=== PATIENT | male | born 1990 | race Caucasian/White ===

== ENCOUNTER 2022-04-24 16:23 | Emergency (ER) | payer OTHER, SELFPAY ==
--- NOTE | ~2022-04-24 | XR_ITS ---
EXAMINATION: XR chest 2V Exam Date/Time: 04/24/2022 17:00 CDT HISTORY: covid exposure left upper back pain Comparison: None available. RESULT: Lines, tubes, and devices: None. Lungs and pleura: Clear. Cardiomediastinal silhouette: Normal. Other: No acute osseous or upper abdominal finding. IMPRESSION: No acute cardiopulmonary process. Reviewed, dictated and finalized at location K.
[2022-04-24 16:38] VITALS: BP 145/68; PULSE 66; RESP 18; TEMP 36.4; O2SAT 99
--- NOTE | 2022-04-24 16:46 | ED.URI ---
HPI - URI/Sore Throat General Chief Complaint: Upper Respiratory Infection Stated Complaint: Headache,Nausea,Lower Back Pain,Lt Shoulder Pain Time Seen by Provider: 04/24/22 16:46 History of Present Illness HPI Narrative: Jose A Dawn is a 31 yo male with no PMH who comes to [facility] with symptoms of headache sore throat and upper back pain has been exposed to COVID or other virus with a group of coworkers who works in a senior living on a quarantine toribio Related Data Allergies Allergy/AdvReac Type Severity Reaction Status Date / Time No Known Allergies Allergy Verified 04/24/22 16:59 Review of Systems Review of Systems: CONSTITUTIONAL: Denies fever, chills, sweats. Headache EYES: Denies visual changes, redness, discharge. ENT: Denies rhinorrhea, congestion, has sore throat, otalgia. Muscle aches CARDIOVASCULAR: Denies chest pain, palpitations, edema. RESPIRATORY: Denies dyspnea, wheezing, mild cough GASTROINTESTINAL: Denies abdominal pain, has nausea, vomiting, diarrhea. GENITOURINARY: Denies dysuria, hematuria, abnormal discharge SKIN: Denies rash or itching. NEUROLOGIC: Denies numbness, or focal weakness. PSYCHIATRIC: Denies anxiety or depression. Upper left back pain PMFSH Social History Social History (Updated 04/24/22 @ 17:14 by Celestina Esparza CNP) Smoking status: Never smoker Alcohol intake: current Comments At time of signature, I agree with nursing past medical, surgical, social and family history. There is no relevant family history pertinent to the presenting complaint. Exam Narrative: GENERAL: This is a well-nourished, well-developed patient, in mild distress. HEAD: normocephalic, atraumatic. EYES: Sclera clear/white. Vision is grossly intact. EARS: External ears normal, auditory canals clear and without drainage, TMs normal without perforation. Hearing grossly intact. NOSE: External nose normal without nasal discharge, nares without redness, no rhinorrhea. THROAT: Mucous membranes moist, posterior pharynx erythema NECK: Neck supple, non-tender CARDIOVASCULAR: Regular rate and rhythm without murmurs, gallops, or rubs. RESPIRATORY: Clear to auscultation. Breath sounds equal bilaterally. No wheezes, rales, or rhonchi. GASTROINTESTINAL: Not done SKIN: warm, intact with no suspicious lesions or rash, good texture and turgor. NEURO: awake, alert, and oriented to person, place and time. There were no obvious focal neurologic abnormalities. Steady gait EXTREMITIES: Normal range of motion. BACK:tender without deformity, not fully reproducible, hurts to lift arm, tightness with deep breath Course Course Emergency Course: Patient comes to [facility] with complaints of headache body aches sore throat nausea for 2 days he works in senior living quarantine unit COVID test-negative Flu test-negative Chest x-ray-no acute cardiopulmonary process normal cardiomediastinal silhouette Started on baclofen for upper back muscle pain Work excuse given awaiting results of COVID PCR Level of Care: Express Care Visit Vital Signs Vital signs: Vital Signs Temperature 97.5 F L 04/24/22 16:38 Pulse Rate 66 04/24/22 16:38 Respiratory Rate 18 04/24/22 16:38 Blood Pressure 145/68 H 04/24/22 16:38 Pulse Oximetry 99 04/24/22 16:38 Oxygen Delivery Room Air 04/24/22 16:38 Temperature 97.5 F L 04/24/22 16:38 Pulse Rate 66 04/24/22 16:38 Respiratory Rate 18 04/24/22 16:38 Blood Pressure 145/68 H 04/24/22 16:38 Pulse Oximetry 99 04/24/22 16:38 Oxygen Delivery Room Air 04/24/22 16:38 MDM - URI/Sore Throat Differential Diagnosis Differential diagnosis: Likely upper respiratory infection, sinusitis, viral infection, influenza and other (COVID versus muscle strain versus costochondritis) Lab Data Labs: Lab Results 04/24/22 Range/Units 17:55 POC SARS CoV-2 Ag Negative (Negative) Influenza A Screen Negative Reference
[2022-04-24 18:52] LABS: SARS-CoV-2 RNA PCR Negative
== END 2022-04-24 17:30 | disposition home or self-care (01) ==
PROVIDERS: Emergency Provider Nurse Practitioner
DX: Z20.822 Contact with and (suspected) exposure to COVID-19 (principal); M54.6 Pain in thoracic spine
CPT/HCPCS: 71046; 87426; 87804; 99203; C9803; G0463; U0003; U0005

== ENCOUNTER 2022-09-16 15:33 | Emergency (ER) | payer OTHER, SELFPAY ==
--- NOTE | 2022-09-16 15:38 | ED.NAVMDI ---
HPI - Nausea/Vomiting/Diarrhea General Chief complaint: Nausea/Vomiting/Diarrhea Stated complaint: DIARRHEA Time Seen by Provider: 09/16/22 15:38 Source: patient and RN notes reviewed History of Present Illness HPI Narrative: Patient is a 32-year-old female who presents to the Urgent Care with complaints of diarrhea that started this morning. Patient states that does seem to have calmed down since he has taken Pepto-Bismol approximately 1 hour ago. Patient believes it may have been from the [place] food that he ate last night. Patient states he has had approximately 4 loose stools. Denies any blood in the stool. Denies any abdominal pain or fever. Denies any nausea or vomiting. Patient states his main concern is missing work. No other acute complaints. No acute distress noted. Patient aware of the plan of care. Some parts of this dictation were generated by voice recognition software and may contain typographical and/or grammatical inaccuracies. Related Data Home Medications Medication Instructions Recorded Confirmed No Home Medications 09/16/22 09/16/22 Allergies Allergy/AdvReac Type Severity Reaction Status Date / Time No Known Allergies Allergy Verified 09/16/22 15:49 Review of Systems Review of Systems: CONSTITUTIONAL: Denies fever, chills, or sweats. EYES: Denies visual changes, redness, or discharge. ENT: Denies rhinorrhea, congestion, sore throat, or otalgia. CARDIOVASCULAR: Denies chest pain, palpitations, or edema. RESPIRATORY: Denies cough or dyspnea. GASTROINTESTINAL: Reports of loose stools without abdominal pain, nausea or vomiting GENITOURINARY: Denies dysuria or hematuria. SKIN: Denies rash or itching. MUSCULOSKELETAL: Denies back pain, joint pain, or myalgia. NEUROLOGIC: Denies headache, numbness, or weakness. All other systems reviewed are negative, except as documented in HPI. PMFSH Social History Social History (Updated 04/24/22 @ 17:14 by Celestina Esparza, [employer]) Smoking status: Never smoker Alcohol intake: current Comments At the time of my signature, I reviewed and agree with the nursing past medical, surgical, social, and family history. There is no relevant family history pertinent to the patient complaint. Exam Narrative: GENERAL: This is a well-nourished, well-developed patient, in no apparent distress. HEAD: normocephalic, atraumatic. EYES: PERRL. Sclera clear/white. Vision is grossly intact. EARS: External ears normal NOSE: External nose normal with no obvious nasal discharge, nares without redness, no rhinorrhea. THROAT: Mucous membranes moist NECK: Neck supple GASTROINTESTINAL: Abdomen soft, non-tender, nondistended. Bowel sounds are hypoactive. SKIN: warm, intact with no suspicious lesions or rash, good texture and turgor. NEURO: awake, alert, and oriented to person, place and time. There were no obvious focal neurologic abnormalities. EXTREMITIES: No clubbing, cyanosis, or edema. Course Course Level of Care: Express Care Visit Vital Signs Vital signs: Vital Signs Pulse Rate 74 09/16/22 15:46 Respiratory Rate 16 09/16/22 15:46 Blood Pressure 131/67 09/16/22 15:46 Pulse Oximetry 99 09/16/22 15:46 Pulse Rate 74 09/16/22 15:46 Respiratory Rate 16 09/16/22 15:46 Blood Pressure 131/67 09/16/22 15:46 Pulse Oximetry 99 09/16/22 15:46 Reviewed MDM - Nausea/Vomiting/Diarrhea MDM Narrative Medical decision making narrative: Advised patient to eat a bland diet avoiding any fatty, fried or greasy foods for the next 48 hours. Increase water intake. Continue the Pepto-Bismol [id number] as needed for symptom relief or may use Imodium. If he develops any increase in symptoms associated with blood in the stools, nausea, vomiting, fever or intense abdominal pains-go to the emergency room. Follow-up with your PCP within 2-5 days or for worsening symptoms or failure to improve. Differential Diagnosis Differential diagnosis: Likely tr
[2022-09-16 15:46] VITALS: BP 131/67; PULSE 74; RESP 16; O2SAT 99
== END 2022-09-16 16:15 | disposition home or self-care (01) ==
PROVIDERS: Emergency Provider Nurse Practitioner Family
DX: K52.9 Noninfective gastroenteritis and colitis, unspecified (principal)
CPT/HCPCS: 99211; G0463

== ENCOUNTER 2022-11-26 10:08 | Emergency (ER) | payer OTHER, SELFPAY ==
[2022-11-26 10:24] VITALS: BP 120/81; PULSE 72; RESP 16; TEMP 36.3; O2SAT 99
--- NOTE | 2022-11-26 10:26 | ED.URI ---
HPI - URI/Sore Throat General Chief Complaint: Upper Respiratory Infection Stated Complaint: HEADACHE/COUGH/RUNNY NOSE/SORE THROAT Time Seen by Provider: 11/26/22 10:27 Source: patient, RN notes reviewed and old records reviewed Mode of arrival: ambulatory Limitations: no limitations History of Present Illness HPI Narrative: 32-year-old male presents to the [facility] with complaints of cough, headache, runny nose and sore throat for 4 days reports a fever of 100.3 yesterday. No treatment prior to arrival. Reports it feels similar to when he had COVID. Onset (ago): day(s) (4) Related Data Home Medications Medication Instructions Recorded Confirmed No Home Medications 09/16/22 11/26/22 Allergies Allergy/AdvReac Type Severity Reaction Status Date / Time No Known Allergies Allergy Verified 11/26/22 10:17 Review of Systems Review of Systems: All systems reviewed & are unremarkable except as noted in HPI and below Constitutional: Constitutional: Reports no additional constitutional complaints Eyes: Eyes: Reports no additional eye complaints ENT: Reports as per HPI Cardiovascular: Cardiovascular: Reports no additional cardiovascular complaints, Denies chest pain and Denies dyspnea Respiratory: Respiratory: Reports no additional respiratory complaints, Denies chest congestion, Denies cough and Denies dyspnea Gastrointestinal: Gastrointestinal: Reports no additional gastrointestinal complaints, Denies abdominal pain, Denies nausea and Denies vomiting Musculoskeletal: Musculoskeletal: Reports no additional musculoskeletal complaints Integumentary/Breasts: Skin/Breast: Reports system reviewed and no additional complaints, except as docu Neurologic: Reports system reviewed and no additional complaints, except as documented Psychiatric: Psychiatric: Reports no additional psychiatric complaints Allergic/Immunologic: Allergic/Immunologic: Reports no additional allergic/immunologic complaints PMFSH Social History Social History Smoking status: Never smoker Alcohol intake: current Comments At the time of my signature, I reviewed and agree with the nursing past medical, surgical, social, and family history. There is no relevant family history pertinent to the patient complaint. Exam Const: General: cooperative, healthy appearing, comfortable, no acute distress, well developed, alert and well nourished Nutritional Appearance: well nourished Orientation/consciousness: patient oriented x3 Limitations: no limitations HENMT: Head: normal to inspection Ears: hearing grossly normal bilaterally and external ears normal Face/Nose/Sinus: Normal external nose present, Normal nares present, Normal nasal mucous membranes and turbinates present, Nasal discharge present clear bilateral, normal facial exam, sinuses nontender and face symmetric Face and sinus: normal facial exam Mouth: Yes Normal oral and palatal mucosa present, Yes lip normal and Yes moist mucous membranes Throat: posterior oropharynx normal and uvula midline Eyes: General: appearance normal, both eyes and all related structures Alignment and Position: alignment normal Periorbital: periorbital findings normal Conjunctivae: conjunctivae normal Pupils: Equal, round and reactive pupils present EOM: EOMs intact bilaterally Neck: Neck: normal visual inspection, full ROM, no lymphadenopathy and no meningeal signs Chest: Chest palpation & inspection: normal inspection of the chest Resp: Effort & Inspection: normal respiratory effort and able to speak in complete sentences Auscultation: clear to auscultation bilaterally, no crackles, no rales, no rhonchi and no wheezes Cardio: Rate: regular rate Rhythm: regular rhythm Back/Spine/Pelvis: Cervical Spine: cervical ROM normal Thoracic/Lumbar Spine: No thoracic spinal tenderness Skin: General skin exam: normal color and no rashes or lesions noted L
== END 2022-11-26 10:37 | disposition home or self-care (01) ==
PROVIDERS: Emergency Provider Nurse Practitioner
DX: J10.1 Influenza due to other identified influenza virus with other respiratory manifestations (principal); Z20.822 Contact with and (suspected) exposure to COVID-19
CPT/HCPCS: 87081; 87426; 87804; 87880; 99213; C9803; G0463

== ENCOUNTER 2023-01-11 11:30 | Emergency (ER) | payer OTHER, SELFPAY ==
--- NOTE | 2023-01-11 11:37 | ED.URI ---
HPI - URI/Sore Throat General Chief Complaint: Upper Respiratory Infection Stated Complaint: fatigue,cough,congestion,sore throat Time Seen by Provider: 01/11/23 12:21 Source: patient and RN notes reviewed Mode of arrival: ambulatory Limitations: no limitations History of Present Illness HPI Narrative: 32-year-old male presents concern for nasal congestion, runny nose, ear pain, cough. Reports symptoms started about 5 days ago. Reports he was diagnosed with flu in the middle of November and had a cough for almost a month and a half. Reports that cough had resolved a few days before the new illness began. He reports he has not had nasal congestion, chest pain, cough this entire time. He denies fever, aches, chills, sweats. He reports he has been taking counter cold medicine. Reports his girlfriend has had cold symptoms MD elicited complaint: cough and sore throat Related Data Allergies Allergy/AdvReac Type Severity Reaction Status Date / Time No Known Allergies Allergy Verified 01/11/23 12:10 Review of Systems Review of Systems: CONSTITUTIONAL: Denies malaise, chills, sweats, or fever. EYES: Denies visual changes, redness, or discharge. ENT: Reports rhinorrhea, congestion, otalgia. Denies sore throat. CARDIOVASCULAR: Denies chest pain, palpitations, or edema. RESPIRATORY: Reports cough. Denies dyspnea. GASTROINTESTINAL: Denies abdominal pain, nausea, vomiting, diarrhea SKIN: Denies rash or itching. MUSCULOSKELETAL: Denies myalgia. NEUROLOGIC: Denies headache. All systems reviewed & are unremarkable except as noted in HPI and below PMFSH Social History Social History Smoking status: Never smoker Alcohol intake: current Comments At time of signature, agree with nursing past medical, surgical, social and family history. There is no relevant family history pertinent to the presenting complaint Exam Narrative: GENERAL: Well-appearing, well-nourished, and in no acute distress. HEAD: Normocephalic EYES: PERRLA, conjunctivae clear ENT: Nares clear, turbinates edematous and erythematous, clear discharge. Mucous membranes moist. TM pearly contreras with sharp light reflex bilaterally; no tragal tenderness. Oropharynx not erythematous without lesions. Tonsils not enlarged and without exudate, no drooling, no hoarseness, no trismus, uvula midline. NECK: Supple. No lymphadenopathy CHEST: Clear to auscultation, breath sounds equal. No wheezing, rhonchi, rales, or stridor. No respiratory distress, speaks in full sentences. HEART: Regular rate and rhythm. No murmur heard. SKIN: Warm, dry, no rash. NEURO: Alert and oriented x3. PSYCH: Normal mood and affect Course Course Emergency Course: Patient is aware of diagnosis, understands and agrees to treatment plan. Anticipatory guidance given. Patient agrees to follow-up as directed and is aware of reasons to seek care at the emergency department. Portions of this record may have been created with voice recognition software Level of Care: Express Care Visit Vital Signs Vital signs: Reviewed. MDM - URI/Sore Throat MDM Narrative Medical decision making narrative: Differential diagnosis considered: Santiago virus, strep pharyngitis, allergic rhinitis, upper respiratory tract infection, sinusitis, rhinosinusitis, nasopharyngitis. viral pharyngitis, otitis media, otitis externa, pneumonia, bronchitis, viral cough syndrome, viral syndrome, and influenza. Exam findings show no acute concerns or changes; patient is non-toxic appearing and is in no distress. Patient is appropriate for outpatient treatment and follow-up. Lab Data Attestation: I reviewed the patient's lab results. Critical Care Time Critical Care Time Critical Care Time: No Discharge Plan Discharge Clinical Impression: Upper respiratory infection Patient Disposition: Home, Self-Care Condition: Stable Instructions: Upper Respiratory Infection (ED)
[2023-01-11 11:39] VITALS: BP 122/76; PULSE 60; RESP 16; TEMP 36.2; O2SAT 99
== END 2023-01-11 12:31 | disposition home or self-care (01) ==
PROVIDERS: Emergency Provider Nurse Practitioner
DX: J06.9 Acute upper respiratory infection, unspecified (principal)
CPT/HCPCS: 99213; G0463

== ENCOUNTER 2023-08-01 11:00 | Outpatient (RCR) | payer OTHER, SELFPAY ==
--- NOTE | 2023-06-07 14:33 | PTOPEVAL1 ---
Assessment and note entered by Yudy Bustillo, PT Evaluation Information Assessment Status Evaluation Diagnosis right knee patellar tendonitis Therapy Condition pain in right knee Onset ~2 years ago Subjective Information Was playing volleyball, jumped and landed normal but a pain just shot up leg and hasn't been able to move like he used to. Pain would go away after a week then would return. Normal vertical leap was 28 inches. Could do a 6 min 30 second mile and now is closer to 9 minutes Used to go 5 days weekly, volleyball 3-4 days out of the week and lifts 5 days weekly. Mary is only lifting 2 days weekly and is not playing volleyall at all. Couple days before saw doctor, was in a tournament and after first game became painful. Next day had to lift leg into car. Would use ibuprofen but this didn't seem to help. would diminish pain but not resolve pain. With rest pain would resolve but with activity would return. Pt tried heat and this cauesd pain to worsen, ice felt better. Icy/Hot didn't seem to help. Reported Pain Level Pain Score 0: Self Report Assessment PT Clinical Summary Pt presents with complaints of right knee pain related to patellar tendonitis. He demo's multiple areas of decreased muscular flexibility, decreased strength in hip musculature R>L, poor kinematics with high level activities such as lunges and vertical leap, and poor ankle/knee alignment. Pt will greatly benefit from physical therapy to address deficits, and educate patient on appropriate kinematics to prevent recurrence in the future. Plan of Care Interventions Electrical Stimulation,Hot Pack/Cold Pack,Manual Therapy,Neuro Re-education,Patient/Caregiver Educati,Therapeutic Activities,Therapeutic Exercise,Self-Care/Home Management,Ultrasound PT Services Indicated Yes Treatment Frequency and 1-2x weekly x 4-6 weeks Duration These treatments will address the objective and functional deficits as defined above. The patient will be advanced safely and appropriately in order for the patient to progress towards his/her prior
--- NOTE | 2023-06-07 14:34 | OPREHPOC ---
Outpatient Therapy Plan of Care This is a Multidisciplinary Plan of Care that may contain components documented by all disciplines (PT, OT, and ST.) PT Goal 1 Goal Pt will be independent in HEP Pt will verbalize understanding of diagnosis and prognosis Target Visit 8 PT Problem 2 PT Problem #2 Pain PT Goal 1 Goal Pt will report greatest pain level at 3/10 or less to improve high level activities Target Visit 8 PT Goal 2 Goal Pt will report resolution of pain to return to PLOF Target Visit 16 PT Problem 3 PT Problem #3 Impaired Strength PT Goal 1 Goal Pt will demo equal strength RLE and LLE in all tested planes Target Visit 8 PT Goal 2 Goal Pt will demo strength of 4+/5 in all tested planes Target Visit 16 PT Problem 4 PT Problem #4 Impaired Coordination PT Goal 1 Goal Pt will demo appropriate squat and vertical leap alignment without cueing Target Visit 16 PT Goal 2 Goal Pt will score 80/80 on LEFS functional outcome measure.
--- NOTE | 2023-06-29 14:03 | PCPTNOTE ---
Patient called & cancelled scheduled appointment this date due to being too sore from last session
--- NOTE | 2023-07-06 16:41 | PTOPPROG ---
Assessment and note entered by Yudy Bustillo, PT Assessment Status Progress Diagnosis right knee patellar tendonitis, pain in right knee Onset ~2 years ago Subjective Information Pt states he is doing really well, doing even better than last time. Self-percieved improvement: 90% Hasn't returned to sports or leg workouts yet and usually in the winter is when it bothers him. Assessment PT Clinical Summary Pt has made significant progress with therapy functionally and related to discomfort levels. He has yet to return to full activity however. Today initial return to play activities were performed with instructions related to advancement. Pt will benefit from continued therapy to continued improvement and meet remainder of his goals. Plan of Care Interventions Electrical Stimulation,Hot Pack/Cold Pack,Manual Therapy,Neuro Re-education,Patient/Caregiver Educati,Therapeutic Activities,Therapeutic Exercise,Self-Care/Home Management,Ultrasound PT Services Indicated Yes Treatment Frequency and 1x weekly x 4 weeks Duration These treatments will address the objective and functional deficits as defined above. The patient will be advanced safely and appropriately in order for the patient to progress towards his/her prior level of function. Additional exercises will be introduced and as well as a comprehensive home exercise program upon discharge, if needed, ?to ensure carryover of functional gains achieved in the clinic. This treatment plan has been reviewed and agreement upon by the patient.
--- NOTE | 2023-08-05 09:42 | PCPTNOTE ---
Clinic called patient and cancelled appointment of 07/28/23 due to staffing shortages
--- NOTE | 2023-08-09 09:28 | PCPTNOTE ---
Patient called & cancelled scheduled appointment this date due to illness
--- NOTE | 2023-08-25 11:43 | PTOPDC ---
Assessment and note entered by Yudy Bustillo, PT Assessment Status Discharge - Pt Not Present Diagnosis right knee patellar tendonitis Onset ~2 years ago Assessment PT Clinical Summary At last treatment session pt was doing well regarding his right knee reporting he had not had pain in a long time. Left knee was bothersome last session and pt was advised in general home exercises and plan. It has been 3 weeks since patient's last session. We have attempted to contact patient multiple times to reschedule his reevaluation/discharge but have been unsuccessful in contacting him. Thus we are discharging him from therapy services.
== END 2023-08-26 11:12 | disposition home or self-care (01) ==
LOC: ANHHIPT 11:00
PROVIDERS: Visit Provider Family Medicine
DX: M76.50 Patellar tendinitis, unspecified knee (principal)
CPT/HCPCS: 97110; 97112; 97161; 97530; 97750

== ENCOUNTER 2024-03-14 14:12 | Emergency (ER) | payer OTHER, SELFPAY ==
--- NOTE | 2024-03-14 14:18 | ED.URI ---
HPI - URI/Sore Throat General Stated Complaint: + COVID Time Seen by Provider: 03/14/24 14:19 Source: patient Mode of arrival: ambulatory Limitations: no limitations History of Present Illness HPI Narrative: Jose A is a 33-year-old male patient presenting to the clinic today with complaints of reports he has had back pain, cough, nasal congestion, sore throat, and generalized body aches x 1 day. He did not home COVID test and it was positive. He needs a work note verifying positive COVID testing. Related Data Home Medications Medication Instructions Recorded Confirmed No Home Medications 04/11/23 03/14/24 Allergies Allergy/AdvReac Type Severity Reaction Status Date / Time No Known Allergies Allergy Unverified 03/14/24 14:19 Review of Systems Review of Systems: Pertinent positives per HPI. Patient denies any fever, chills, rash, headache, visual changes, dizziness, shortness of breath, chest pain, palpitations, nausea, vomiting, diarrhea, constipation, abdominal pain, or any urinary issues. [facility] Past Medical History Medical History Annual physical exam Encounter for screening for malignant neoplasm of prostate Encounter to establish care with new doctor Patellar tendonitis Screening cholesterol level Surgical History Surgical History No history of previous surgery Family History Family History Grandparent Diabetes mellitus Mother Cancer Social History Social History Smoking status: Never smoker Alcohol intake: current Substance use: never Do You Feel Safe in your Home?: Yes Lack of Transportation: No Lack of Food: Never True Current Housing: I Have Housing Concerned About Future Housing: No Difficulty Paying Gas/Electric Bills: No Difficulty Paying for Meds: No Currently Unemployed: No Education: High School Diploma/GED Difficulty w/ Childcare or Family Care: No Living arrangements: alone Occupation/Education: occupation 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 There is no relevant family history pertinent to the patient complaint. Exam Narrative: General: Well-developed, well nourished, in no apparent distress Head: Normocephalic, atraumatic Eyes: Pupils equally round and reactive to light bilaterally, EOM intact, sclera and conjunctive clear, no discharge, lids normal Ears: TMs intact and congested, ear canals clear, no drainage, grossly hearing normal. Nose: Nares patent, clear nasal discharge, no inflammation, no sinus tenderness. Mouth: Oropharynx without lesions or masses, good dentition, MMM. Neck: Supple, trachea midline, no enlargement of anterior or posterior cervical nodes, no thyroid masses or goiter palpable. Cardio: Regular rate and rhythm, s1 and s2 normal, no murmur appreciated. Resp: Clear to auscultation bilaterally anteriorly and posteriorly, no rhonchi, rales, wheezing or rubs Course Course Emergency Course: Portions of this record may have been created with voice recognition software. Level of Care: Express Care Visit Vital Signs Vital signs: Vital signs reviewed MDM - URI/Sore Throat MDM Narrative Medical decision making narrative: At the time of visit patient is resting comfortably on the exam table. Patient appears to be nontoxic. Labs: COVID-testing was positive in the clinic today Plan: I suspect patient has COVID. Work note was given. Supportive measures were discussed with the patient and they voiced understanding discharge instructions and agrees to treatment plan. Return precautions reviewed
[2024-03-14 14:25] VITALS: BP 130/81; PULSE 70; RESP 16; TEMP 36.9; O2SAT 100
== END 2024-03-14 14:27 | disposition home or self-care (01) ==
PROVIDERS: Emergency Provider Nurse Practitioner Family; PCP Nurse Practitioner Family
DX: U07.1 COVID-19 (principal)
CPT/HCPCS: 87426; 99213; G0463

== ENCOUNTER 2024-04-18 13:25 | Emergency (ER) | payer OTHER, SELFPAY ==
--- NOTE | 2024-04-18 13:26 | ED.SKABFB ---
HPI - Skin/Abscess/Foreign Bdy General Chief complaint: Skin/Abscess/Foreign Body Stated complaint: RED SPOTS ON R LEG/GROIN & R LEG PAIN Time Seen by Provider: 04/18/24 13:25 Source: patient Mode of arrival: ambulatory Limitations: no limitations History of Present Illness HPI narrative: Jose A is a 33-year-old male patient presenting to the clinic today with complaints of to sores to the right lower leg with pain radiated up into his groin. He reports he noticed to pustular sores to the right leg on Tuesday and attempted to pop them. Someone popped 1 of the source yesterday and drained some bloody discharge. Areas are becoming more red, painful, and he is having some pain going up his right inner thigh and into the right groin. He denies any fevers, chills, or body aches but notes he has had some fatigue but attributes that to not sleeping well. Related Data Allergies Allergy/AdvReac Type Severity Reaction Status Date / Time No Known Allergies Allergy Verified 04/18/24 13:38 Review of Systems Review of Systems: Pertinent positives per HPI. Patient denies any fever, chills, rash, headache, visual changes, dizziness, cough, runny nose, sore throat, shortness of breath, chest pain, palpitations, nausea, vomiting, diarrhea, constipation, abdominal pain, or any urinary issues. [facility] Past Medical History Medical History Annual physical exam Encounter for screening for malignant neoplasm of prostate Encounter to establish care with new doctor Patellar tendonitis Screening cholesterol level Surgical History Surgical History No history of previous surgery Family History Family History Grandparent Diabetes mellitus Mother Cancer Social History Social History Smoking status: Never smoker Alcohol intake: current Substance use: never Do You Feel Safe in your Home?: Yes Lack of Transportation: No Lack of Food: Never True Current Housing: I Have Housing Concerned About Future Housing: No Difficulty Paying Gas/Electric Bills: No Difficulty Paying for Meds: No Currently Unemployed: No Education: High School Diploma/GED Difficulty w/ Childcare or Family Care: No Living arrangements: alone Occupation/Education: occupation 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 There is no relevant family history pertinent to the patient complaint. Exam Narrative: General: Well-developed, well nourished, in no apparent distress Head: Normocephalic, atraumatic. Cardio: Regular rate and rhythm, s1 and s2 normal, no murmur appreciated. Resp: Clear to auscultation bilaterally, no rhonchi, rales, wheezing or rubs. Integumentary: [place], warm, and dry, two sores to the right leg 1 distal and 1 proximal that are red and swollen and tender to palpation with mild induration with scabbed centers-yellow crusting. No drainage active. No lymphatic streaking, tenderness to palpation over the right medial thigh and over the right groin. No erythema over the medial thigh or the groin Course Course Emergency Course: Portions of this record may have been created with voice recognition software. Level of Care: Express Care Visit Vital Signs Vital signs: Vital Signs Temperature 36.3 C L 04/18/24 13:30 Pulse Rate 79 04/18/24 13:30 Respiratory Rate 16 04/18/24 13:30 Blood Pressure 131/77 04/18/24 13:30 Pulse Oximetry 98 04/18/24 13:30 Temperature 36.3 C L 04/18/24 13:30 Pulse Rate 79 04/18/24 13:30 Respiratory Rate 16 04/18/24 13:30 Blood Pressure 131/77 04/18/24 1
[2024-04-18 13:30] VITALS: BP 131/77; PULSE 79; RESP 16; TEMP 36.3; O2SAT 98
== END 2024-04-18 13:40 | disposition home or self-care (01) ==
PROVIDERS: Emergency Provider Nurse Practitioner Family; PCP Nurse Practitioner Family
DX: L08.9 Local infection of the skin and subcutaneous tissue, unspecified (principal); B96.89 Other specified bacterial agents as the cause of diseases classified elsewhere
CPT/HCPCS: 99213; G0463

== ENCOUNTER 2024-10-03 12:26 | Emergency (ER) | payer OTHER, SELFPAY ==
[2024-10-03 12:49] VITALS: BP 109/70; PULSE 82; RESP 16; TEMP 36.5; O2SAT 98
[2024-10-03 13:04] LABS: EDCOVIDSCREEN Negative (Negative); EDINFLUASCREEN Negative (Negative); EDINFLUBSCREEN Negative (Negative)
--- NOTE | 2024-10-03 13:10 | ED.NAVMDI ---
HPI - Nausea/Vomiting/Diarrhea General Chief complaint: Nausea/Vomiting/Diarrhea Stated complaint: VOMITING/DIARRHEA/NAUSEA/CHILLS/SWEATS Time Seen by Provider: 10/03/24 13:10 Source: patient Mode of arrival: ambulatory Limitations: no limitations History of Present Illness HPI Narrative: 34-year-old male presents with complaint of fatigue, nausea, vomiting, diarrhea, upset stomach for 2 days. States symptoms were mild yesterday, worse today. Complains of headache. Able to keep down some water. All systems reviewed and negative except as noted above. Related Data Allergies Allergy/AdvReac Type Severity Reaction Status Date / Time No Known Allergies Allergy Verified 10/03/24 12:54 Review of Systems Review of Systems: CONSTITUTIONAL: Denies fever, chills, or sweats. EYES: Denies visual changes, redness, or discharge. ENT: Denies rhinorrhea, congestion, sore throat, or otalgia. CARDIOVASCULAR: Denies chest pain, palpitations, or edema. RESPIRATORY: Denies cough or dyspnea. GASTROINTESTINAL: Denies abdominal pain. Reports nausea, vomiting, or diarrhea. GENITOURINARY: Denies dysuria or hematuria. SKIN: Denies rash or itching. MUSCULOSKELETAL: Denies back pain, joint pain, or myalgia. NEUROLOGIC: Denies headache, numbness, or weakness. PSYCHIATRIC: Denies anxiety or depression. All other systems reviewed are negative, except as documented in HPI. [facility] Past Medical History Medical History Annual physical exam Encounter for screening for malignant neoplasm of prostate Encounter to establish care with new doctor Patellar tendonitis Screening cholesterol level Surgical History Surgical History No history of previous surgery Family History Family History Grandparent Diabetes mellitus Mother Cancer Social History Social History (Updated 09/12/24 @ 09:47 by Will Sethi) Social History: 09/12/24 patient declined SDDC Smoking status: Never smoker Alcohol intake: current Substance use: never Do You Feel Safe in your Home?: Yes Lack of Transportation: No Lack of Food: Never True Current Housing: I Have Housing Concerned About Future Housing: No Difficulty Paying Gas/Electric Bills: No Difficulty Paying for Meds: No Currently Unemployed: No Education: High School Diploma/GED Difficulty w/ Childcare or Family Care: No Living arrangements: alone Occupation/Education: occupation 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 There is no relevant family history pertinent to the presenting complaint. Exam Narrative: GENERAL: This is a well-nourished, well-developed patient, in no apparent distress. HEAD: normocephalic, atraumatic. EYES: PERRL. Sclera clear/white. Vision is grossly intact. EARS: External ears normal, auditory canals clear and without drainage, TMs normal without perforation. Hearing grossly intact. NOSE: External nose normal with no obvious nasal discharge, nares without redness, no rhinorrhea. THROAT: Mucous membranes moist, posterior pharynx clear. NECK: Neck supple, non-tender without lymphadenopathy, masses or thyromegaly. CARDIOVASCULAR: Regular rate and rhythm without murmurs, gallops, or rubs. RESPIRATORY: Clear to auscultation. Breath sounds equal bilaterally. No wheezes, rales, or rhonchi. GASTROINTESTINAL: Abdomen soft, non-tender, nondistended. Bowel sounds are active. No hepato-splenomegaly, or palpable masses. No guarding. SKIN: warm, Dry, intact with no suspicious lesions or rash, good texture and turgor. NEURO: awake, alert, and oriented to person, place and time. There were no obvious focal neurologic abnormalities. EXTREMITIES: No joint tenderness, effusion, or edema noted. Course Course Level of Care: Express Care Visit Vital Signs Vital signs: Vital Signs Temperature 36.5 C 10/03/24 12:49 Pulse Rate 82 10/03/24 12:49 Respiratory Rate 16 10/03/24 12:49 Blood Pressure 109/70 10/03/24 12:49 Pulse Oximetry 98 10/03/24 12:49 Temperature 36.5 C 10/03/24 12:49 Pulse Rate 82 10/03/24 12:49 Respiratory Rate 16 10/03/24 12:49 Blood Pressure 109/70 10/03/24 12:49 Pulse Oximetry 98 10/03/24 12:49 Reviewed MDM - Nausea/Vomiting/Diarrhea MDM Narrative Medical decision making narrative: Negative COVID and influenza testing. No abdominal tenderness on exam. Will discharge patient with Vicky and Sudheer for viral gastroenteritis. Recommend he go to the ER for any worsening of abdominal pain, concern for dehydration. Patient is alert, nontoxic. Please be advised this is a medical document. It is intended for [id number] communication. It is written in medical language and may contain unfamiliar abbreviations or verbiage. Medical documents are intended to carry relevant information, facts as evident, and the clinical opinion of the practitioner at the time of the encounter. This report may have been done utilizing a voice recognition system. Attempts have been made to correct errors. However, there may be uncorrected grammatical, spelling, and recognition errors present. The file time of this note does not necessarily represent the time of service. Differential Diagnosis Differential diagnosis: Likely gastroenteritis Lab Data Labs: Lab Results 10/03/24 Range/Units 13:03 POC Influenza A Ag Negative (Negative) POC Influenza B Ag Negative (Negative) POC SARS CoV-2 Ag Negative (Negative) Discharge Plan Discharge Clinical Impression: Viral gastroenteritis Patient Disposition: Home, Self-Care Condition: Stable Instructions: Gastroenteritis (ED) Additional Instructions: Your COVID and influenza test was negative today. Your symptoms are viral and may last 7-10 days. Take medication as prescribed. Take ibuprofen or Tylenol every 6-8 hours as needed for pain and fever. Drink at least 64 oz of water a day. Follow-up your doctor if symptoms are not improving. Patient Language: [place] Prescriptions: New dicyclomine 20 mg tablet 20 mg PO Q6-8H PRN (Reason: abdominal pain) Qty: 20 0RF ondansetron 4 mg tablet,disintegrating 4 mg PO Q8H PRN (Reason: nausea and vomiting) Qty: 12 0RF Follow-up/Referrals: UNKNOWN,DOCTOR [Primary Care Provider] - Stand Alone Forms: Work/School Release IP Time of Disposition: 13:17
== END 2024-10-03 13:25 | disposition home or self-care (01) ==
PROVIDERS: Emergency Provider Nurse Practitioner Family
DX: A08.4 Viral intestinal infection, unspecified (principal); Z20.822 Contact with and (suspected) exposure to COVID-19
CPT/HCPCS: 87426; 87804; 99213; G0463